=== PATIENT | female | born 1980 | race Caucasian/White ===

== ENCOUNTER → 2016-08-17 | Outpatient (CLI) | payer BC ==
--- NOTE | 2016-08-17 11:34 | RAD ---
Indication right rib pain. Fall 2 days previously. A single view of the chest was obtained and is compared to an examination 01/24/2007. Films of right ribs were also obtained. The heart and pulmonary vessels appear normal. The mediastinum has a normal appearance. The lungs are clear of acute infiltrates. There is no pleural fluid. No pneumothorax is seen. Films of right ribs appear unremarkable. IMPRESSION: No acute finding in the chest. Normal plain films right ribs
== END | disposition home or self-care (01) ==
LOC: DXRADRC 10:19
PROVIDERS: ATTEND Physician Assistant Medical
DX: R07.81 Pleurodynia (principal); W19.XXXD Unspecified fall, subsequent encounter
CPT/HCPCS: 71101

== ENCOUNTER 2020-08-16 17:39 | Emergency (ER) | payer BC ==
[~2020-08-16] VITALS: Ht 160 cm; Wt 80.3 kg
[2020-08-16] MEDS ORDERED: KETOROLAC 15 MG/ML VIAL. IM ONE (18:30)
[2020-08-16] MEDS ORDERED: diphenhydrAMINE HCL 25 MG CAPSULE PO ONE ×2 (18:37→18:45)
--- NOTE | 2020-08-16 19:33 | PHYS DOC ---
Past History Past Surgical History: Cholecystectomy (SYBIL FABIAN APRN) Alcohol Use: None (SYBIL FABIAN APRN) General Adult EDM: Chief Complaint: HEADACHE HPI: HPI: Patient is a 40-year-old female presents with intermittent headache since Saturday. Patient states "I started having dizziness when I would stand up". Patient states that she has been taking Tylenol with a little relief. Patient denies being the worst headache of her life. Denies thunderclap. Patient denies any nausea or vomiting. Denies recent illness. Patient is alert and oriented. Denies health history. (SYBIL FABIAN APRN) Review of Systems: Review of Systems: Constitutional: Denies fever or chills Eyes: Denies change in visual acuity HENT: Denies nasal congestion or sore throat Respiratory: Denies cough or shortness of breath Cardiovascular: Denies chest pain or edema GI: Denies abdominal pain, nausea, vomiting, bloody stools or diarrhea : Denies dysuria Musculoskeletal: Denies back pain or joint pain Integument: Denies rash Neurologic: Denies headache, focal weakness or sensory changes Endocrine: Denies polyuria or polydipsia Lymphatic: Denies swollen glands Psychiatric: Denies depression or anxiety (SYBIL FABIAN APRN) Current Medications: Current Meds: Current Medications Medications (Trade) Dose Ordered Sig/Richi Start Time Stop Time Status Last Admin Dose Admin Diphenhydramine HCl (Benadryl) 25 mg 1X ONCE 08/16/20 18:45 08/16/20 18:48 DC 08/16/20 18:43 25 MG Ketorolac Tromethamine (Toradol 15mg Vial) 15 mg 1X ONCE 08/16/20 18:30 08/16/20 18:31 DC 08/16/20 18:44 15 MG (SYBIL FABIAN APRN) Allergies: Allergies: Allergies Coded Allergies Type Severity Reaction Last Updated Verified penicillin Allergy Unknown 09/22/14 Yes (SYBIL FABIAN APRN) Physical Exam: PE: Constitutional: Well developed, well nourished, no acute distress, non-toxic appearance. [] HENT: Normocephalic, atraumatic, bilateral external ears normal, oropharynx moist, no oral exudates, nose normal. [] Eyes: PERRLA, EOMI, conjunctiva normal, no discharge. [] Neck: Normal range of motion, no tenderness, supple, no stridor. [] Cardiovascular:Heart rate regular rhythm, no murmur [] Lungs & Thorax: Bilateral breath sounds clear to auscultation [] Abdomen: Bowel sounds normal, soft, no tenderness, no masses, no pulsatile masses. [] Skin: Warm, dry, no erythema, no rash. [] Back: No tenderness, no CVA tenderness. [] Extremities: No tenderness, no cyanosis, no clubbing, ROM intact, no edema. [] Neurologic: Alert and oriented X 3, normal motor function, normal sensory function, no focal deficits noted. [] Psychologic: Affect normal, judgement normal, mood normal. [] (SYBIL FABIAN APRN) Current Patient Data: Vital Signs: Vital Signs Date Time Temp Pulse Resp B/P (MAP) Pulse Ox O2 Delivery O2 Flow Rate FiO2 08/16/20 18:44 77 110/63 (79) 104/56 (72) 08/16/20 17:56 18 100 (SYBIL FABIAN APRN) EKG: EKG: [] Sinus rhythm. Heart rate 66 bpm (SYBIL FABIAN APRN) Radiology/Procedures: Radiology/Procedures: []EXAM: CT Head without IV contrast CLINICAL HISTORY: Reason: headache / Spl. Instructions: / History: COMPARISON: None. TECHNIQUE: Routine CT of the head without contrast. PQRS compliance statement - One or more of the following individualized dose reduction techniques were utilized for this study: 1. Automated exposure control 2. Adjustment of the mA and/or kV according to patient size 3. Use of iterative reconstruction technique FINDINGS: There is no evidence of hemorrhage, mass or extra-axial fluid collection. Pinto-white differentiation is maintained with no evidence of edema. There is no mass effect or shift of the intracranial structures. The ventricles, basilar cisterns and cortical sulci are normal in size and configuration for the patients stated age. The cerebellum and brainstem are unremarkable. The calvarium demonstrates no evidence of fracture or focal lesion. There is normal aeration of the visualized paranasal sinuses and mastoid air cells. The visualized portions of the orbits are normal. IMPRESSION: No evidence for acute intracranial process. Electronically signed by: Ector Bergeron MD (08/16/2020 9:18 PM) [facility] (SYBIL FABIAN APRN) Heart Score: C/O Chest Pain: No Risk Factors: Risk Factors: DM, Current or recent (<one month) smoker, HTN, HLP, family history of CAD, obesity. Risk Scores: Score 0 - 3: 2.5% MACE over next 6 weeks - Discharge Home Score 4 - 6: 20.3% MACE over next 6 weeks - Admit for Clinical Observation Score 7 - 10: 72.7% MACE over next 6 weeks - Early Invasive Strategies (SYBIL FABIAN APRN) Course & Med Decision Making: Course & Med Decision Making Pertinent Labs and Imaging studies reviewed. (See chart for details) [] 40-year-old female presents with intermittent headache since Saturday. Patient was also reporting dizziness with position changes. Neuro exam is negative. Patient denies it being worse headache of her life. Denies thunderclap. Alert and oriented. Patient given Toradol, Benadryl. EKG shows sinus rhythm, heart rate 66 bpm. Orthostatics are negative. States that headache is a 3/10 and pain has improved. Patient is still requesting something for pain. Patient given hydrocodone 5/325. CT head ordered to rule out any acute abnormalities. CT head was negative. Instructed patient to take Tylenol and ibuprofen at home and increase fluids. Patient should follow up with her PCP if pain continues. Gave patient strict return precautions. (SYBIL AFBIAN APRN) Course & Med Decision Making Did not see or evaluate patient. Agree with RADIO DIRECTOR's work-up and disposition per note. (MICHEAL HUDSON MD) Dragon Disclaimer: Dragon Disclaimer: This electronic medical record was generated, in whole or in part, using a voice recognition dictation system. (SYBIL FABIAN APRN) Departure Departure: Impression: Primary Impression: Headache Qualified Codes: R51.9 - Headache, unspecified Disposition: HOME / SELF CARE / HOMELESS Condition: STABLE Referrals: ELIJAH BLAS MD (PCP) Patient Instructions: General Headache Without Cause Additional Instructions: You were seen in the emergency room for headache. You were given Benadryl and Toradol for pain. You can take Tylenol at home for pain. Increase fluid intake. Please follow-up with your PCP if symptoms continue. Return to emergency room with worsening symptoms or concerns. EMERGENCY DEPARTMENT GENERAL DISCHARGE INSTRUCTIONS Thank you for coming to [facility] (ED) today and trusting us with you care. We trust that you had a positivie experience in our Emergency Department. If you wish to speak to the department management, you may call the director at [phone]. YOUR FOLLOW UP INSTRUCTIONS ARE FOLLOWS: 1. Do you have a private Doctor? If you do not have a private doctor, please ask for a resource list of physicians or clinics that may be able to assist you with follow up care. 2. The Emergency Physician has interpreted your x-rays. The X-Ray specialist will also review them. If there is a change in the findings, you will be notified in 48 hours when at all possible. 3. A lab test or culture has been done, your results will be reviewed and you will be notified if you need a change in treatment. ADDITIONAL INSTRUCTIONS AND INFORMATION: 1. Your care today has been supervised by a physician who is specially trained in emergency care. Many problems require more than one evaluation for a complete diagnosis and treatment. We recommend that you schedule your follow up appointment as recommended to ensure complete treatment of you illness or injury. If you are unable to obtain follow up care and continue to have a problem, or if your condition worsens, we recommend that you return to the ED. 2. We are not able to safely determine your condition over the phone nor are we able to give sound medical advice over the phone. For these safety reasons, if you call for medical advice we will ask you to come to the ED for further evaluation. 3. If you have any questions regarding these discharge instructions please call the ED at [phone]. SAFETY INFORMATION: In the interest of safety, wellness, and injury prevention; we encourage you to wear your sealbelt, if you smoke; quite smoking, and we encourage family to use a protective helmet for bicycling and other sporting events that present an increased risk for head injury. IF YOUR SYMPTOMS WORSEN OR NEW SYMPTOMS DEVELOP, OR YOU HAVE CONCERNS ABOUT YOUR CONDITION; OR IF YOUR CONDITION WORSENS WHILE YOU ARE WAITING FOR YOUR FOLLOW UP APPOINTMENT; EITHER CONTACT YOUR PRIMARY CARE DOCTOR, THE PHYSICIAN WHOSE NAME AND NUMBER YOU WERE GIVEN, OR RETURN TO THE ED IMMEDIATELY. SYBIL FABIAN APRN Aug 16, 2020 19:33 MICHEAL HUDSON MD Aug 17, 2020 00:11
[2020-08-16] MEDS ORDERED: HYDROcodone/APAP 5/325MG 1 TAB TABLET PO ONE (20:30)
[2020-08-16 21:00] VITALS: BP 114/73
--- NOTE | 2020-08-16 21:21 | RAD ---
EXAM: CT Head without IV contrast CLINICAL HISTORY: Reason: headache / Spl. Instructions: / History: COMPARISON: None. TECHNIQUE: Routine CT of the head without contrast. PQRS compliance statement - One or more of the following individualized dose reduction techniques wer e utilized for this study: 1. Automated exposure control 2. Adjustment of the mA and/or kV according to patient size 3. Use of iterative reconstruction technique FINDINGS: There is no evidence of hemorrhage, mass or extra-axial fluid collection. Pinto-white differentiation is maintained with no evidence of edema. There is no mass effect or shift of the intracranial structures. The ventricles, basilar cisterns and cortical sulci are normal in size and configuration for the domenic ents stated age. The cerebellum and brainstem are unremarkable. The calvarium demonstrates no evidence of fracture or focal lesion. There is normal aeration of the visualized paranasal sinuses and mastoid air cells. The visualized portions of the orbits are normal. IMPRESSION: No evidence for acute intracranial process. Electronically signed by: Ector Bergeron MD (08/16/2020 9:18 PM) [facility]
--- NOTE | 2020-08-16 21:34 | EKG ---
[address] [address] Test Date: 2020-08-16 Test Time: 18:51:45 Pat Name: SAIRA CHENG Department: Room: Gender: F Mining Technician: : 1980 Requested By: SYBIL FABIAN Order Number: [id number] Reading MD: Guillermo Rubi Measurements Intervals [place] Rate: 66 P: 42 FL: 150 QRS: 5 QRSD: 78 T: 26 QT: 424 QTc: 446 Interpretive Statements SINUS RHYTHM NORMAL ECG RI6.02 No previous ECG available for comparison Electronically Signed On 08-17-2020 11:48:09 CDT by Guillermo Rubi
== END 2020-08-16 21:00 | disposition home or self-care (01) ==
LOC: ER 17:39
DX: R51.9 Headache, unspecified (principal); R42 Dizziness and giddiness; Z90.49 Acquired absence of other specified parts of digestive tract; Z88.0 Allergy status to penicillin
CPT/HCPCS: 70450; 93005; 96372; 99284; J1885; Q0163

== ENCOUNTER 2021-01-06 11:58 | Emergency (ER) | payer SELFPAY ==
[~2021-01-06] VITALS: Ht 160 cm; Wt 80.3 kg
[2021-01-06 12:32] VITALS: BP 107/67
[2021-01-06] MEDS ORDERED: IV NORMAL SALINE 1,000ML 1,000 ML IV SCH (13:15)
[2021-01-06] MEDS ORDERED: ONDANSETRON PF 4 MG/2 ML VIAL. IVP ONE (13:15)
[2021-01-06 13:34] LABS: BASO # 0.1 x10^3/uL (0.0-0.2); BASO % 1 % (0-3); EOS % 0 % (0-3); HEMATOCRIT 25.4 % (36.0-47.0); HEMOGLOBIN 7.5 g/dL (12.0-15.5); LYMPH # 0.4 x10^3/uL (1.0-4.8); LYMPH % 4 % (24-48); MEAN CORPUSCULAR HEMOGLOBIN 17 pg (25-35); MEAN CORPUSCULAR HGB CONC 30 g/dL (31-37); MEAN CORPUSCULAR VOLUME 59 fL (79-100); MONO # 0.4 x10^3/uL (0.0-1.1); MONO % 5 % (0-9); NEUT # 8.7 x10^3uL (1.8-7.7); NEUT % 91 % (31-73); PLATELET COUNT 555 x10^3/uL (140-400); RED BLOOD COUNT 4.34 x10^6/uL (3.50-5.40); RED CELL DISTRIBUTION WIDTH 18.9 % (11.5-14.5); WHITE BLOOD COUNT 9.6 x10^3/uL (4.0-11.0)
[2021-01-06 13:47] LABS: CALCIUM 8.1 mg/dL (8.5-10.1); CREATININE 0.6 mg/dL (0.6-1.0); GFR 111.3; POTASSIUM 3.7 mmol/L (3.5-5.1)
[2021-01-06 13:56] LABS: ALBUMIN 3.8 g/dL (3.4-5.0); ALBUMIN/GLOBULIN RATIO 1.2 (1.0-1.7); TOTAL BILIRUBIN 1.1 mg/dL (0.2-1.0); TOTAL PROTEIN 7.1 g/dL (6.4-8.2)
[2021-01-06 14:09] LABS: PLT ESTIMATE INCREASED (ADEQUATE)
[2021-01-06 14:10] LABS: HYPOCHROMIA MARKED
[2021-01-06 14:11] LABS: MICROCYTOSIS MARKED; OVALOCYTES FEW; POIKILOCYTOSIS SLIGHT; SCHISTOCYTES OCC
[2021-01-06 14:12] LABS: ANISOCYTOSIS MOD
[2021-01-06] MEDS ORDERED: ONDA4TAB12 PO (14:52)
--- NOTE | 2021-01-06 14:53 | PHYS DOC ---
Past History Past Surgical History: Cholecystectomy, Other Additional Past Surgical Histo: gastric sleeve (MANPREET ESCOBAR APRN) Alcohol Use: None (MANPREET ESCOBAR APRN) General Adult EDM: Chief Complaint: NAUSEA/VOMITING/DIARRHEA HPI: HPI: Patient is a 40-year-old female who presents to the emergency department for nausea and vomiting that started last night. Patient denies blood in her stools or vomit, diarrhea, urinary symptoms, abdominal pain, sick exposures, chest pain, fever, shortness of breath loss of taste or smell. She denies eating any foods prior to her symptoms starting. Patient's vital signs are stable and she is in no acute distress. (MANPREET ESCOBAR APRN) Review of Systems: Review of Systems: 14 body systems of the review of systems have been reviewed. See HPI for pertinent positive and negative responses, otherwise all other systems are negative, nonpertinent or noncontributory (MANPREET ESCOBAR APRN) Current Medications: Current Meds: Current Medications Medications (Trade) Dose Ordered Sig/Richi Start Time Stop Time Status Last Admin Dose Admin Ondansetron HCl (Zofran) 4 mg 1X ONCE 01/06/21 13:15 01/06/21 13:16 DC 01/06/21 13:15 4 MG Sodium Chloride 1,000 ml @ 1,000 mls/hr Q1H 01/06/21 13:15 01/06/21 14:14 DC 01/06/21 13:15 1,000 MLS/HR (MANPREET ESCOBAR APRN) Allergies: Allergies: Allergies Coded Allergies Type Severity Reaction Last Updated Verified penicillin Allergy Unknown 09/22/14 Yes (MANPREET ESCOBAR APRN) Physical Exam: PE: Constitutional: Well developed, well nourished, no acute distress, non-toxic appearance. [] HENT: Normocephalic, atraumatic, bilateral external ears normal, oropharynx moist, no oral exudates, nose normal. [] Eyes: PERRL, EOMI, conjunctiva normal, no discharge. [] Neck: Normal range of motion, no tenderness, supple, no stridor. [] Cardiovascular:Heart rate regular rhythm, no murmur [] Lungs & Thorax: Bilateral breath sounds clear to auscultation [] Abdomen: Bowel sounds normal, soft, no tenderness, no masses, no pulsatile masses. [] Skin: Warm, dry, no erythema, no rash. [] Back: Normal range of motion Extremities: No tenderness, no cyanosis, no clubbing, ROM intact, no edema. [] Neurologic: Alert and oriented X 3, normal motor function, normal sensory function, no focal deficits noted. [] Psychologic: Affect normal, judgement normal, mood normal. [] (MANPREET ESCOBAR APRN) Current Patient Data: Labs: Laboratory Tests Test 01/06/21 13:16 White Blood Count 9.6 x10^3/uL (4.0-11.0) Red Blood Count 4.34 x10^6/uL (3.50-5.40) Hemoglobin 7.5 g/dL (12.0-15.5) L Hematocrit 25.4 % (36.0-47.0) L Mean Corpuscular Volume 59 fL (79-100) L Mean Corpuscular Hemoglobin 17 pg (25-35) L Mean Corpuscular Hemoglobin Concent 30 g/dL (31-37) L Red Cell Distribution Width 18.9 % (11.5-14.5) H Platelet Count 555 x10^3/uL (140-400) H Neutrophils (%) (Auto) 91 % (31-73) H Lymphocytes (%) (Auto) 4 % (24-48) L Monocytes (%) (Auto) 5 % (0-9) Eosinophils (%) (Auto) 0 % (0-3) Basophils (%) (Auto) 1 % (0-3) Neutrophils # (Auto) 8.7 x10^3uL (1.8-7.7) H Lymphocytes # (Auto) 0.4 x10^3/uL (1.0-4.8) L Monocytes # (Auto) 0.4 x10^3/uL (0.0-1.1) Eosinophils # (Auto) 0.0 x10^3/uL (0.0-0.7) Basophils # (Auto) 0.1 x10^3/uL (0.0-0.2) Platelet Estimate Increased (ADEQUATE) Hypochromasia Marked Poikilocytosis Slight Anisocytosis Mod Microcytosis Marked Ovalocytes Few Schistocytes Occ Sodium Level 141 mmol/L (136-145) Potassium Level 3.7 mmol/L (3.5-5.1) Chloride Level 106 mmol/L (98-107) Carbon Dioxide Level 25 mmol/L (21-32) Anion Gap 10 (6-14) Blood Urea Nitrogen 17 mg/dL (7-20) Creatinine 0.6 mg/dL (0.6-1.0) Estimated GFR (Cockcroft-Gault) 111.3 BUN/Creatinine Ratio 28 (6-20) H Glucose Level 112 mg/dL (70-99) H Calcium Level 8.1 mg/dL (8.5-10.1) L Total Bilirubin 1.1 mg/dL (0.2-1.0) H Aspartate Amino Transferase (AST) 15 U/L (15-37) Alanine Aminotransferase (ALT) 15 U/L (14-59) Alkaline Phosphatase 43 U/L (46-116) L Total Protein 7.1 g/dL (6.4-8.2) Albumin 3.8 g/dL (3.4-5.0) Albumin/Globulin Ratio 1.2 (1.0-1.7) Lipase 58 U/L (73-393) L Vital Signs: Vital Signs Date Time Temp Pulse Resp B/P (MAP) Pulse Ox O2 Delivery O2 Flow Rate FiO2 01/06/21 12:32 98.5 112 24 107/67 (80) 98 (MANPREET ESCOBAR APRN) EKG: EKG: [] (MANPREET ESCOBAR APRN) Radiology/Procedures: Radiology/Procedures: [] (MANPREET ESCOBAR APRN) Heart Score: C/O Chest Pain: N/A Risk Factors: Risk Factors: DM, Current or recent (<one month) smoker, HTN, HLP, family history of CAD, obesity. Risk Scores: Score 0 - 3: 2.5% MACE over next 6 weeks - Discharge Home Score 4 - 6: 20.3% MACE over next 6 weeks - Admit for Clinical Observation Score 7 - 10: 72.7% MACE over next 6 weeks - Early Invasive Strategies (MANPREET ESCOBAR APRN) Course & Med Decision Making: Course & Med Decision Making Pertinent Labs and Imaging studies reviewed. (See chart for details) [] Patient presents to the emergency department for nausea and vomiting that started last night. Patient's work-up in the ER consisted of blood work, u rinalysis. Patient treated with IV fluids and nausea medication. Patient's p.o. challenge in the emergency department was able to tolerate tolerate oral fluids. UA negative. Patient's hemoglobin was noted to be 7.5, hematocrit 25.4. Patient reports that she has a history of iron deficiency anemia due to heavy menses. She reports that she takes iron supplements. She states that she had a heavy menstrual cycle last week. I spoke with Dr. Forman regarding possible admission. He states that patient can receive Venofer which is an iron IV infusion for iron deficiency anemia or she can be discharged home to take her iron supplements and follow-up with Dr. Tenorio. Nursing pump service supervisor informed ER nursing staff that the patient must be admitted to receive IV iron infusion. I discussed these findings with patient and possible treatment plans, she is a agreeable to being discharged home to take her iron supplements and follow-up with Dr. Tenorio. Patient is asymptomatic at this time she has stable vital signs and is not complaining of any chest pain, shortness of breath, dizziness. Patient will be discharged home with nausea medication that she can take as needed. She is advised to increase her fluids, avoid spicy, greasy or fatty foods and follow the brat diet. I discussed with patient all findings and diagnostic testing as well as the need to follow-up with PCP for further evaluation and treatment or return to the ER if any new or worsening symptoms. Strict return precautions were also discussed at length. Patient voiced understanding and agreement with the plan. Patient is hemodynamically stable at the time of disposition. (MANPREET ESCOBAR APRN) Dragon Disclaimer: Dragon Disclaimer: This electronic medical record was generated, in whole or in part, using a voice recognition dictation system. (MANPREET ESCOBAR APRN) Attending Co-Sign The patient was seen and interviewed as well as examined at the bedside. The chart was reviewed. The case was discussed. Agree with the plan of care. (JAVIER WOOD DO) Departure Departure: Impression: Primary Impression: Nausea & vomiting Qualified Codes: R11.2 - Nausea with vomiting, unspecified Additional Impression: Anemia Qualified Codes: D50.9 - Iron deficiency anemia, unspecified Disposition: 01 HOME / SELF CARE / HOMELESS Condition: GOOD Referrals: ELIJAH BLAS MD (PCP) Patient Instructions: Iron Deficiency Anemia, Nausea and Vomiting Additional Instructions: You were seen in the emergency department for nausea and vomiting. You were treated with IV fluids and nausea medication was able to tolerate oral fluids in the ER. As we discussed, your hemoglobin hematocrit were low indicating anemia. Continue taking your iron supplements as previously prescribed and you need to follow-up with Dr. Tenorio on Saturday regarding your ER visit. You are being discharged home with nausea medication he can take as needed. Increase your fluids. I would stick to a clear liquid diet for the rest of today which includes soups, Gatorade, Jell-O. Following today, stick to a bland diet including bananas, rice, applesauce and toast. Avoid eating any spicy, greasy or fatty foods. Return to the emergency department if you develop lightheadedness, chest pain, shortness of breath, intractable nausea or vomiting, high fevers refractory to treatment, abdominal pain, blood in your stools or vomit. Scripts Ondansetron (ONDANSETRON ODT) 4 Mg Tab.rapdis 1 TAB PO PRN Q6-8HRS for NAUSEA for 7 Days, #28 TAB 0 Refills Prov: MANPREET ESCOBAR APRN 01/06/21 MANPREET ESCOBAR APRN Jan 06, 2021 14:52 JAVIER WOOD DO Jan 09, 2021 10:47
[2021-01-06 16:14] LABS: BILIRUBIN,URINE NEG (NEG); CLARITY,URINE CLEAR; COLOR,URINE YELLOW; GLUCOSE,URINE NEG (NEG)
[2021-01-06 16:15] LABS: BACTERIA,URINE 0 /HPF (0-FEW); NITRITE,URINE NEG (NEG); RBC,URINE 0 /HPF (0-2); SQUAMOUS EPITHELIAL CELL,UR OCC /LPF; UROBILINOGEN,URINE 0.2 mg/dL (0.2 mg/dL); WBC,URINE 0 /HPF (0-4)
== END 2021-01-06 16:40 | disposition home or self-care (01) ==
LOC: ER 11:58
DX: D50.9 Iron deficiency anemia, unspecified (principal); R11.2 Nausea with vomiting, unspecified; Z90.49 Acquired absence of other specified parts of digestive tract; Z88.0 Allergy status to penicillin
CPT/HCPCS: 36415; 80053; 81001; 81025; 83690; 83735; 85007; 85025; 96361; 96374; 99283; J2405; J7030

== ENCOUNTER 2021-01-23 17:46 | Emergency (ER) | payer SELFPAY ==
[~2021-01-23] VITALS: Ht 160 cm; Wt 77.3 kg
[~2021-01-23 17:46] MED LIST: ONDA4TAB12 PO
--- NOTE | 2021-01-23 19:09 | PHYS DOC ---
Past History Past Surgical History: Cholecystectomy, Other Additional Past Surgical Histo: gastric sleeve Alcohol Use: None Adult General Chief Complaint Chief Complaint: LOWER EXT PAIN HPI HPI Patient is a 40-year-old female who presents with right ankle pain and left third toe pain after twisting her ankle and scraping her toe on the stairs at home. Denies any other injuries. States she took some Tylenol at home. States that her ankle has some pain and swelling, 5 out of 10, dull and achy in nature. Review of Systems Review of Systems Review of systems otherwise unremarkable except noted in HPI Allergies Allergies Allergies Coded Allergies Type Severity Reaction Last Updated Verified penicillin Allergy Unknown 09/22/14 Yes Physical Exam Physical Exam Constitutional: Well developed, well nourished, no acute distress, non-toxic appearance. [] HENT: Normocephalic, atraumatic, Extremities: Right ankle with some mild generalized swelling with no obvious deformities or bruising, and third toe on left foot slightly bruised with no obvious swelling and a tiny abrasion, neurovascular exam intact Neurologic: Alert and oriented X 3, normal motor function, normal sensory function, no focal deficits noted. [] Psychologic: Affect normal, judgement normal, mood normal. [] EKG EKG [] Radiology/Procedures Radiology/Procedures [] Heart Score C/O Chest Pain: No Risk Factors: Risk Factors: DM, Current or recent (<one month) smoker, HTN, HLP, family history of CAD, obesity. Risk Scores: Risk Factors: DM, Current or recent (<one month) smoker, HTN, HLP, family history of CAD, obesity. Course & Med Decision Making Course & Med Decision Making Patient is a 40-year-old female who presents with right ankle and third left toe pain after twisting her ankle Vital signs not concerning. Physical exam noted above. Given ibuprofen and ice. Imaging with no acute osseous abnormalities. Given prescription for crutches. Jimmy wrap applied. Discussed symptom management at home. Advised to follow-up in the morning with primary care physician. Gave return precautions to the ED. Patient grateful, verbalized understanding and agreed with plan of discharge. [] Dragon Disclaimer Dragon Disclaimer This electronic medical record was generated, in whole or in part, using a voice recognition dictation system. Departure Departure: Impression: Primary Impression: Ankle sprain Additional Impression: Toe pain Disposition: HOME / SELF CARE / HOMELESS Condition: GOOD Referrals: ELIJAH BLAS MD (PCP) Patient Instructions: RICE - Routine Care for Injuries Additional Instructions: Thank you for coming into the emergency department tonight and allowing us to take care of you. Please read the attached information carefully to go back over some of the things we discussed. Please continue a Tylenol, ibuprofen and ice regimen as we discussed. Please keep your Jimmy wrap on to provide stability and pain relief is much as possible. Please follow-up with your primary care physician soon as you can update on ED visit and set up a follow-up. Please come back with new or concerning symptoms as discussed. Scripts Crutch (CRUTCH) 1 Each Each PAIR MC UD PRN for ankle pain, #1 0 Refills DISPENSE: 1 PAIR OF CRUTCHES. PATIENT TO USE INSTRUCTED BY PROVIDER. Prov: MICHEAL HUDSON MD 01/23/21 Problem Qualifiers MICHEAL HUDSON MD Jan 23, 2021 19:09
[2021-01-23 19:20] VITALS: BP 114/76
[2021-01-23] MEDS ORDERED: CRUT1EAC3 MC (19:28)
[2021-01-23] MEDS ORDERED: IBUPROFEN 600 MG TABLET. PO ONE (19:30)
[2021-01-23] MEDS ORDERED: DIPH,PERTUSS(ACELL),TET VAC/PF 0.5 ML SYRINGE. VAX IM ONE (19:45)
--- NOTE | 2021-01-23 19:57 | RAD ---
3 views right ankle and 3 views right foot dated 01/23/2021. COMPARISON: None. Clinical data indication: Pain after injury. FINDINGS: 3 views the right ankle show normal bony alignment. No displaced fracture. There is diffuse soft tiss ue swelling. The talar dome is intact. No acute osseous or articular abnormality. Prominent plantar s pur. 3 views the right foot show normal bony alignment. No displaced fracture. No acute osseous or articul ar abnormality. No periostitis or bone destruction. IMPRESSION: Soft tissue swelling with no apparent underlying acute bony abnormality. Electronically signed by: Alex Macario MD (01/23/2021 7:55 PM) [facility]
== END 2021-01-23 20:19 | disposition home or self-care (01) ==
LOC: ER 17:46
DX: S93.401A Sprain of unspecified ligament of right ankle, initial encounter (principal); S90.122A Contusion of left lesser toe(s) without damage to nail, initial encounter; Z88.0 Allergy status to penicillin; X50.9XXA Other and unspecified overexertion or strenuous movements or postures, initial encounter; Y93.89 Activity, other specified; Y92.89 Other specified places as the place of occurrence of the external cause; Y99.8 Other external cause status
CPT/HCPCS: 73610; 73630; 90471; 90715; 99284

== ENCOUNTER 2021-03-13 14:52 | Emergency (ER) | payer BC ==
[~2021-03-13] VITALS: Ht 160 cm; Wt 80.6 kg
[~2021-03-13 14:52] MED LIST changes: +CRUT1EAC3 MC
--- NOTE | 2021-03-13 15:54 | RAD ---
Single view of the chest. 03/13/2021 3:49 PM Indication: inspiratory back pain rad lateral : Comparison: Chest radiograph August 17, 2016 Findings: There is no focal consolidation. There is no pleural effusion or pneumothorax. The cardiome diastinal silhouette and pulmonary vasculature are within normal limits. No acute osseous abnormaliti es are seen. Impression: No evidence of acute cardiopulmonary process. Electronically signed by: Ten Benavidez MD (03/13/2021 3:51 PM) [id number]
[2021-03-13 16:16] LABS: BACTERIA,URINE 0 /HPF (0-FEW); BILIRUBIN,URINE NEG (NEG); CLARITY,URINE CLEAR; COLOR,URINE YELLOW; GLUCOSE,URINE NEG (NEG); NITRITE,URINE NEG (NEG); RBC,URINE 0 /HPF (0-2); SQUAMOUS EPITHELIAL CELL,UR OCC /LPF; UROBILINOGEN,URINE 0.2 mg/dL (0.2 mg/dL); WBC,URINE 0 /HPF (0-4)
--- NOTE | 2021-03-13 16:16 | PHYS DOC ---
Past History Past Medical History: Anemia (prior transfusions required) (ODALIS VEGA) Past Surgical History: Cholecystectomy, Other Additional Past Surgical Histo: gastric sleeve (ODALIS VEGA) Alcohol Use: None (ODALIS VEGA) General Adult EDM: Chief Complaint: BACK PAIN - NO INJURY HPI: HPI: Patient is a 40 year old female who presents with right-sided midthoracic back pain that began 2 days ago. She states that just an hour prior to arrival, the pain has begun to radiate around the lateral side to the front of her thorax. Patient reports this pain is worse with certain body movements and when she inhales deeply. She states, "I don't feel sick," and denies all other complaints. (ODALIS VEGA) Review of Systems: Review of Systems: Constitutional: Denies fever, chills or generalized weakness Eyes: Denies change in visual acuity, visual field deficits or discharge HENT: Denies ear pain, nasal congestion or sore throat Respiratory: Denies cough or shortness of breath Cardiovascular: Denies chest pain, palpitations or edema GI: Denies abdominal pain, nausea, vomiting, bloody stools or diarrhea : Denies dysuria or hematuria Musculoskeletal: See HPI Integument: Denies rash or other skin lesion Neurologic: Denies headache, focal weakness or sensory changes (ODALIS VEGA) Allergies: Allergies: Allergies Coded Allergies Type Severity Reaction Last Updated Verified penicillin Allergy Unknown 01/23/21 Yes (ODALIS VEGA) Physical Exam: PE: Constitutional: Well developed, well nourished, no acute distress, non-toxic appearance. HENT: Normocephalic, atraumatic, bilateral external ears normal, nose normal. Eyes: EOMI, conjunctiva normal, no discharge. Neck: Normal range of motion, no stepoff, no tenderness, no stridor. Cardiovascular: Heart rate regular rhythm, no murmur. Lungs & Thorax: Equal thoracic expansion, no increased work of breathing, bilateral breath sounds clear to auscultation, no reproducible tenderness or crepitus. Abdomen: Bowel sounds normal, soft, no tenderness, no masses, no pulsatile masses. Skin: Warm, dry, no erythema, no rash. Back: No step-off, no midline tenderness, right-sided mid thoracic/pariscapular tenderness, no CVA tenderness. Neurologic: Alert and oriented x4, normal motor function, normal sensory function, no focal deficits noted. (ODALIS VEGA) Current Patient Data: Labs: Laboratory Tests Test 03/13/21 15:55 03/13/21 16:12 03/13/21 20:45 Urine Collection Type Clean catch Urine Color Yellow Urine Clarity Clear Urine pH 6.5 Urine Specific [place] 1.010 Urine Protein Neg (NEG-TRACE) Urine Glucose (UA) Neg mg/dL (NEG) Urine Ketones (Stick) Neg mg/dL (NEG) Urine Blood Neg (NEG) Urine Nitrite Neg (NEG) Urine Bilirubin Neg (NEG) Urine Urobilinogen Dipstick 0.2 mg/dL (0.2 mg/dL) Urine Leukocyte Esterase Neg (NEG) Urine RBC 0 /HPF (0-2) Urine WBC 0 /HPF (0-4) Urine Squamous Epithelial Cells Occ /LPF Urine Bacteria 0 /HPF (0-FEW) White Blood Count 8.1 x10^3/uL (4.0-11.0) Red Blood Count 4.12 x10^6/uL (3.50-5.40) Hemoglobin 6.7 g/dL (12.0-15.5) Hematocrit 23.3 % (36.0-47.0) Mean Corpuscular Volume 57 fL (79-100) Mean Corpuscular Hemoglobin 16 pg (25-35) Mean Corpuscular Hemoglobin Concent 29 g/dL (31-37) Red Cell Distribution Width 18.3 % (11.5-14.5) Platelet Count 574 x10^3/uL (140-400) Neutrophils (%) (Auto) 65 % (31-73) Lymphocytes (%) (Auto) 22 % (24-48) Monocytes (%) (Auto) 11 % (0-9) Eosinophils (%) (Auto) 1 % (0-3) Basophils (%) (Auto) 1 % (0-3) Neutrophils # (Auto) 5.3 x10^3uL (1.8-7.7) Lymphocytes # (Auto) 1.8 x10^3/uL (1.0-4.8) Monocytes # (Auto) 0.8 x10^3/uL (0.0-1.1) Eosinophils # (Auto) 0.1 x10^3/uL (0.0-0.7) Basophils # (Auto) 0.1 x10^3/uL (0.0-0.2) Sodium Level 138 mmol/L (136-145) Potassium Level 4.3 mmol/L (3.5-5.1) Chloride Level 104 mmol/L (98-107) Carbon Dioxide Level 26 mmol/L (21-32) Anion Gap 8 (6-14) Blood Urea Nitrogen 11 mg/dL (7-20) Creatinine 0.5 mg/dL (0.6-1.0) Estimated GFR (Cockcroft-Gault) 137.4 BUN/Creatinine Ratio 22 (6-20) Glucose Level 89 mg/dL (70-99) Calcium Level 8.6 mg/dL (8.5-10.1) Total Bilirubin 1.0 mg/dL (0.2-1.0) Aspartate Amino Transf (AST/SGOT) 11 U/L (15-37) Alanine Aminotransferase (ALT/SGPT) 16 U/L (14-59) Alkaline Phosphatase 45 U/L (46-116) Troponin I High Sensitivity < 4 ng/L (4-50) Total Protein 6.9 g/dL (6.4-8.2) Albumin 4.0 g/dL (3.4-5.0) Albumin/Globulin Ratio 1.4 (1.0-1.7) Lipase 120 U/L (73-393) Influenza Type A (Rapid) Negative (NEGATIVE) Influenza Type B (Rapid) Negative (NEGATIVE) SARS-CoV-2 Antigen (Rapid) Negative (NEGATIVE) Vital Signs: VS - Last 72 Hours, by Label Date Time Temp Pulse Resp B/P (MAP) Pulse Ox O2 Delivery O2 Flow Rate FiO2 03/13/21 20:51 82 18 124/71 (88) 100 Room Air 03/13/21 20:44 98.5 84 18 124/71 03/13/21 20:40 98.5 81 18 124/71 (88) 100 Room Air 03/13/21 20:16 99.0 90 18 123/72 03/13/21 20:00 80 18 119/71 (87) 100 Room Air 03/13/21 19:49 86 20 122/66 (84) 97 Room Air 03/13/21 19:38 98.7 91 18 123/77 03/13/21 19:36 87 20 123/77 (92) 100 Room Air 03/13/21 19:29 98.7 87 18 118/76 03/13/21 19:29 98.5 94 18 118/76 03/13/21 19:27 87 20 118/76 (90) 98 Room Air 03/13/21 19:19 98.7 86 20 124/64 (84) 100 Room Air 03/13/21 19:15 98.4 86 18 124/64 03/13/21 15:42 91 20 120/80 (93) 97 Room Air 03/13/21 15:15 98.6 94 20 115/71 (86) 100 Room Air (ODALIS VEGA) EKG: EKG: EKG Interpreted by Dr. Weir at 1602: Regular rate and rhythm 84 bpm with no ectopic beats. QT 374 ms/QTc 445 ms. No STEMI. (ODALIS VEGA) Radiology/Procedures: Radiology/Procedures: PROCEDURE: CHEST AP ONLY Single view of the chest. 03/13/2021 3:49 PM Indication: inspiratory back pain rad lateral : Comparison: Chest radiograph August 17, 2016 Findings: There is no focal consolidation. There is no pleural effusion or pne umothorax. The cardiomediastinal silhouette and pulmonary vasculature are within normal limits. No acute osseous abnormalities are seen. Impression: No evidence of acute cardiopulmonary process. Electronically signed by: Ten Benavidez MD (03/13/2021 3:51 PM) [id number] (ODALIS VEGA) Heart Score: C/O Chest Pain: Yes HEART Score for Chest Pain: HEART Score for Chest Pain Response (Comments) Value History Slighlty/Non-Suspicious 0 ECG Normal 0 Age < 45 0 Risk Factors No Risk Factors 0 Troponin < Normal Limit 0 Total 0 Risk Factors: No risk factors. Risk Scores: Score 0 - 3: 2.5% MACE over next 6 weeks - Discharge Home Score 4 - 6: 20.3% MACE over next 6 weeks - Admit for Clinical Observation Score 7 - 10: 72.7% MACE over next 6 weeks - Early Invasive Strategies (ODALIS VEGA) Course & Med Decision Making: Course & Med Decision Making Pertinent Labs and Imaging studies reviewed. (See chart for details) Patient is a 40 y/o F with PMHx of anemia who presents with right sided back pain radiating laterally to the anterior chest wall. Workup reveals critically low hemoglobin of 6.7 compared to 7.5 two months ago. Patient made aware of findings. Discussed need for PRBC transfusion, including risk vs benefit. Patient consents to treatment. Discussed admission vs PCP follow up. Patient states she is currently a patient of Dr. Vaughan. She states she had one outpatient transfusion in the past after a women's health exam over a year ago. Placed a call to Dr. Vaughan to ensure follow up for the patient. He states that while he has not seen Kayleigh since 2017, he would be happy to reestablish care and follow up with her this week. Patient instructed to call his office tomorrow morning to schedule her appointment. Type & screen added to workup and patient was given two units of PRBCs. Patient tolerated transfusion procedure well and is stable for discharge to home. Patient given strict return precautions. She understands and is agreeable to discharge plan. (ODALIS VEGA) Carito Disclaimer: Carito Disclaimer: This electronic medical record was generated, in whole or in part, using a voice recognition dictation system. (ODALIS VEGA) Departure Departure: Impression: Primary Impression: Anemia Qualified Codes: D64.9 - Anemia, unspecified Additional Impression: Musculoskeletal back pain Disposition: HOME / SELF CARE / HOMELESS Condition: IMPROVED Referrals: ELIJAH VAUGHAN MD (PCP) Patient Instructions: Constipation, Adult, Vque-sz-Woef, Iron Deficiency Anemia, Lque-ar-Ggsl, Iron tablets, capsules, extended-release tablets, Iron- Rich Diet Additional Instructions: EMERGENCY DEPARTMENT GENERAL DISCHARGE INSTRUCTIONS Thank you for coming to [facility] (ED) today and trusting us with you care. We trust that you had a positive experience in our Emergency De partment. If you wish to speak to the department management, you may call the director at [phone]. YOUR FOLLOW UP INSTRUCTIONS ARE FOLLOWS: 1. Follow up with your primary care doctor THIS WEEK. He is aware of your visit and has agreed to see you for follow up and reestablishment of care. 2. The emergency provider has interpreted your imaging studies, if any were ordered. The radiology medical front desk specialist also reviewed them. If there is a change in the findings, you will be notified in 48 hours when at all possible. 3. If a lab test or culture has been done, your results will be reviewed and you will be notified if you need a change in treatment. 4. Follow instructions verbalized to you and refer to the printouts if needed. ADDITIONAL INSTRUCTIONS AND INFORMATION: 1. Your care today has been supervised by a physician who is specially trained in emergency care. Many problems require more than one evaluation for a complete diagnosis and treatment. We recommend that you schedule your follow up appointment as recommended to ensure complete treatment of you illness or injury. If you are unable to obtain follow up care and continue to have a problem, or if your condition worsens, we recommend that you return to the ED. 2. We are not able to safely determine your condition over the phone nor are we able to give sound medical advice over the phone. For these safety reasons, if you call for medical advice we will ask you to come to the ED for further evaluation. 3. If you have any questions regarding these discharge instructions please call the ED at [phone]. SAFETY INFORMATION: In the interest of safety, wellness, and injury prevention; we encourage you to wear your seat belt, if you smoke; quite smoking, and we encourage family to use a protective helmet for bicycling and other sporting events that present an increased risk for head injury. IF YOUR SYMPTOMS WORSEN OR NEW SYMPTOMS DEVELOP, OR YOU HAVE CONCERNS ABOUT YOUR CONDITION; OR IF YOUR CONDITION WORSENS WHILE YOU ARE WAITING FOR YOUR FOLLOW UP APPOINTMENT; EITHER CONTACT YOUR PRIMARY CARE DOCTOR, THE PHYSICIAN WHOSE NAME AND NUMBER YOU WERE GIVEN, OR RETURN TO THE ED IMMEDIATELY. Follow the following supportive treatment measures: - Cool mist humidifier with plain water at bedside while you sleep - Mucinex (guaifenesin) per box instructions - Tessalon perles (benzonatate) for cough, especially at night before bed - Alternate ibuprofen and acetaminophen every four hours for body aches/fever/headache - Use the incentive spirometer 5 times per day with 10 deep breaths each time. If antibiotics were prescribed, take them as directed. You have been tested for or diagnosed with COVID-19 infection. It is an infection caused by a new type of coronavirus. COVID-19 will cause cold-like or mild flu symptoms in most. It can cause more severe symptoms like problems breathing in some. There is no treatment for COVID-19. The body will clear the infection over time. Self-care will help to ease discomfort. Steps to Take: - Rest as needed. - Choose healthy foods including fruits and vegetables. Drink water throughout the day. - Get plenty of sleep each night. - If you smoke, try to quit. It may ease breathing. - Avoid alcohol. - Keep Others Healthy - The virus can spread to others. Droplets are released every time you sneeze or cough. The droplets can get into the mouth, nose, or eyes of people near you and lead to infection. To lower the chances of spreading COVID-19 to others: Stay at home until your doctor has said it is safe to leave. If you tested positive this will mean staying isolated until both of the following are true: - At least 10 days have passed since the start of illness. - You are free of fever for at least 72 hours without the use of medicine. During this time: - Avoid public areas, events, or transportation. Do not return to work or school until your doctor has said it is safe to do so. - Call ahead if you need to go to a medical center. Let them know you may have COVID-19. It will help them guide you where to go. They may also ask you to wear a facemask when you come to the office. - If you call for emergency medical services, let them know you may have COVID- 19. While at home: - Try to avoid close contact with others. Stay about 6 feet away. - If possible, spend most of your time in a separate room from others. - Use a face mask if you will be in close contact with others such as sharing a room or vehicle. - Have someone wipe down common surfaces in the home. Use household gm video every day on areas like doorknobs, counters, or sinks. - Cough or sneeze into a tissue. Throw the tissue away right after use. If a tissue is not available, cough or sneeze into your elbow. - Wash your hands often. Wash them after sneezing or coughing. Use soap and water and wash or at least 20 seconds. Alcohol based hand housekeeping cleaner can be used if soap and water is not available. - Do not prepare food for others. Avoid sharing personal items like forks, spoons, or toothbrushes. - Avoid close contact with pets while you are sick. There is no evidence of the virus passing to pets. This is a safety step until more is known about this virus. - Isolation can be frustrating. Social interaction can help. Keep in touch with friends and family through phone and tech options. You can still interact with others in your home, just keep a safe distance of about 6 feet. Follow-up: - Your doctors office will check in with you to see if there are any changes in your health. - You may be asked to keep track of symptoms to share with them. They will also let you know when you are clear to be in public again. Contact your doctor if your recovery is not going as you expect. Get emergency care if you have problems such as: - Trouble breathing with oxygen saturation <90% - Nonstop chest pain or pressure - Changes in awareness, confusion, or problems waking - Lips or face have bluish color - Worsening of symptoms If you think you have an emergency, call for emergency medical services right away. As taken from [facility] Orphenadrine Citrate (ORPHENADRINE CITRATE) 100 Mg Tablet.er 1 TAB PO BID for muscle pain, #10 TAB 1 Refill Prov: ODALIS VEGA 03/13/21 Attending Signature Attending Signature I have reviewed the PA/PAINT AND TABLE EDGER's note and plan of care. I was available for consultation as needed during the patient's visit in the emergency department. I agree with the clinical impression, plan, and disposition. (JAZMIN WEIR DO) ODALIS VEGA Mar 13, 2021 16:15 JAZMIN WEIR DO Mar 14, 2021 00:00
[2021-03-13 16:40] LABS: BASO # 0.1 x10^3/uL (0.0-0.2); BASO % 1 % (0-3); EOS # 0.1 x10^3/uL (0.0-0.7); EOS % 1 % (0-3); HEMATOCRIT 23.3 % (36.0-47.0); LYMPH # 1.8 x10^3/uL (1.0-4.8); LYMPH % 22 % (24-48); MEAN CORPUSCULAR HEMOGLOBIN 16 pg (25-35); MEAN CORPUSCULAR HGB CONC 29 g/dL (31-37); MEAN CORPUSCULAR VOLUME 57 fL (79-100); MONO # 0.8 x10^3/uL (0.0-1.1); MONO % 11 % (0-9); NEUT # 5.3 x10^3uL (1.8-7.7); NEUT % 65 % (31-73); PLATELET COUNT 574 x10^3/uL (140-400); RED BLOOD COUNT 4.12 x10^6/uL (3.50-5.40); RED CELL DISTRIBUTION WIDTH 18.3 % (11.5-14.5); WHITE BLOOD COUNT 8.1 x10^3/uL (4.0-11.0)
[2021-03-13 16:55] LABS: CALCIUM 8.6 mg/dL (8.5-10.1); CREATININE 0.5 mg/dL (0.6-1.0); GFR 137.4; POTASSIUM 4.3 mmol/L (3.5-5.1)
[2021-03-13 16:59] LABS: HEMOGLOBIN 6.7 g/dL (12.0-15.5)
[2021-03-13 17:04] LABS: ALBUMIN/GLOBULIN RATIO 1.4 (1.0-1.7); TOTAL PROTEIN 6.9 g/dL (6.4-8.2)
[2021-03-13 19:15] VITALS: BP 124/64
[2021-03-13 19:29] VITALS: BP 118/76
[2021-03-13 19:38] VITALS: BP 123/77
[2021-03-13 20:16] VITALS: BP 123/72
--- NOTE | 2021-03-13 20:26 | EKG ---
[address] [address] Test Date: 2021-03-13 Test Time: 15:58:48 Pat Name: SAIRA CHENG Department: Room: Gender: F Nursing Service Director: BOOKER : 1980 Requested By: ODALIS VEGA Order Number: [id number] Reading MD: Ramirez Townsend Measurements Intervals [place] Rate: 84 P: 36 MN: 146 QRS: -8 QRSD: 80 T: 26 QT: 374 QTc: 445 Interpretive Statements SINUS RHYTHM LEFTWARD AXIS Electronically Signed On 03-14-2021 12:29:14 REED MAKER by Ramirez Townsend
[2021-03-13 20:44] VITALS: BP 124/71
[2021-03-13 20:51] VITALS: BP 124/71
[2021-03-13] MEDS ORDERED: ORPH-16 PO (21:09)
[2021-03-13 21:25] LABS: INFLUENZA A PATIENT NEGATIVE (NEGATIVE); INFLUENZA B PATIENT NEGATIVE (NEGATIVE)
== END 2021-03-13 21:17 | disposition home or self-care (01) ==
LOC: ER 14:52
DX: D64.9 Anemia, unspecified (principal); M54.6 Pain in thoracic spine; Z20.822 Contact with and (suspected) exposure to COVID-19; Z86.2 Personal history of diseases of the blood and blood-forming organs and certain disorders involving the immune mechanism; Z88.0 Allergy status to penicillin
CPT/HCPCS: 36415; 36430; 71045; 80053; 81001; 83690; 84484; 85025; 86850; 86900; 86901; 86920; 87428; 93005; 99285; C9803; P9016; U0003